=== PATIENT | female | born 1940 | race Caucasian/White ===

== ENCOUNTER 2017-01-09 16:01 | Inpatient (IN) | payer MEDICARE ==
[~2017-01-09] VITALS: Ht 152.4 cm; Wt 55.6 kg
[2017-01-09] MEDS ORDERED: PLEASE ENTER HEIGHT AND WEIGHT MC SCH (16:30)
[2017-01-09] MEDS ORDERED: PLEASE ENTER ALLERGIES MC SCH ×2 (16:30)
[2017-01-09] MEDS ORDERED: SODIUM CHLORIDE 0.9% 1,000ML IVBOLUS ONE (16:30)
[2017-01-09] MEDS ORDERED: CEFTRIAXONE PMX 1GM/50ML 50 ML IVPB ONE (16:30)
[2017-01-09] MEDS ORDERED: AZITHROMYCIN 500 MG in SODIUM CHLORIDE 0.9% 250 ML IV ONE (16:30)
[2017-01-09] MEDS ORDERED: CEFTRIAXONE PMX 1GM/50ML 50 ML ONE (16:36)
[2017-01-09] MEDS ORDERED: OMEP10CA4 PO (16:43)
[2017-01-09] MEDS ORDERED: OXYC10TA6 PO (16:43)
[2017-01-09] MEDS ORDERED: ALBU8.5H3 INH (16:43)
[2017-01-09] MEDS ORDERED: GABA300C10 PO (16:43)
[2017-01-09] MEDS ORDERED: [UNRECOGNIZED DRUG - OTHER] (16:43)
[2017-01-09] MEDS ORDERED: [UNRECOGNIZED DRUG - OTHER] (16:43)
[2017-01-09] MEDS ORDERED: ATOR80TA75 PO (16:43)
[2017-01-09] MEDS ORDERED: WARF1TAB7 PO (16:43)
[2017-01-09 17:06] LABS: ASPARTATE AMINO TRANSFERASE 45 U/L (15-37); BLOOD UREA NITROGEN 12 mg/dL (7-18)
[2017-01-09 17:11] LABS: IS PT STATUS REG ER OR PRE ER? YES
[2017-01-09] MEDS ORDERED: OMNIPAQUE 350 MG/ML, 100ML BOTTLE ONE (19:13)
[2017-01-09] MEDS ORDERED: ACETAMINOPHEN 325 MG TABLET ONE (20:29)
[2017-01-09] MEDS ORDERED: POTASSIUM CHLORIDE 20 MEQ TAB.ER.PRT PO ONE (20:30)
[2017-01-09] MEDS ORDERED: BISACODYL 10 MG SUPP PR PRN (20:30)
[2017-01-09] MEDS ORDERED: CEFTRIAXONE PMX 1GM/50ML 50 ML IV SCH (20:30)
[2017-01-09] MEDS ORDERED: AZITHROMYCIN 500 MG in SODIUM CHLORIDE 0.9% 250 ML IV SCH (20:30)
[2017-01-09] MEDS ORDERED: NICOTINE 7 MG/24 HR PATCH.TD24 TD SCH (20:30)
[2017-01-09] MEDS ORDERED: POLYETHYLENE GLYCOL 17 GM PACKET PO PRN (20:30)
[2017-01-09] MEDS ORDERED: GUAIFENESIN/DM 200-20MG, 10ML UDC PO PRN (20:30)
[2017-01-09] MEDS ORDERED: ONDANSETRON 2MG/ML, 2ML IVPush PRN (20:30)
[2017-01-09] MEDS: ACETAMINOPHEN 325 MG TABLET PO PRN (20:31)
[2017-01-09] MEDS: SODIUM CHLORIDE FLUSH 3ML SYRINGE IVF SCH (21:00)
[2017-01-09] MEDS ORDERED: ATORVASTATIN 80 MG TABLET PO SCH (21:00)
[2017-01-09] MEDS: OXYcodone IR 5MG TABLET PO PRN (22:00)
[2017-01-09 22:11] VITALS: BP 133/55
[2017-01-09] MEDS ORDERED: ALBUTEROL SULFATE 2.5 MG/3 ML NPPB PRN (23:00)
[2017-01-09 23:41] LABS: IS PT STATUS REG ER OR PRE ER? NO
[2017-01-10 01:30] VITALS: BP 148/67
[2017-01-10] MEDS: ACETAMINOPHEN 325 MG TABLET PO PRN (03:51)
[2017-01-10] MEDS: OXYcodone IR 5MG TABLET PO PRN (06:09)
[2017-01-10 06:26] LABS: ASPARTATE AMINO TRANSFERASE 59 U/L (15-37); BLOOD UREA NITROGEN 8 mg/dL (7-18)
[2017-01-10 06:27] LABS: IS PT STATUS REG ER OR PRE ER? NO
[2017-01-10 06:49] VITALS: BP 133/63
[2017-01-10] MEDS ORDERED: OXYcodone IR 5MG TABLET PO PRN (09:00)
[2017-01-10] MEDS ORDERED: WARFARIN 1 MG TABLET PO-COUM SCH (09:00)
[2017-01-10] MEDS: SODIUM CHLORIDE FLUSH 3ML SYRINGE IVF SCH (09:00)
[2017-01-10] MEDS ORDERED: TEMPLATE NON-FORMULARY MED. (Oxycodone Hcl** 10 MG) PO SCH (09:00)
[2017-01-10] MEDS ORDERED: SENNA/DOCUSATE TABLET PO SCH (09:00)
[2017-01-10] MEDS ORDERED: GABAPENTIN 300 MG CAPSULE PO SCH (09:00)
[2017-01-10] MEDS ORDERED: AZIT500T77 PO (11:30)
[2017-01-10] MEDS ORDERED: GUAI600T22 PO (11:30)
[2017-01-10] MEDS ORDERED: GUAIFENESIN ER 600 MG TABLET PO SCH (11:30)
[2017-01-10] MEDS ORDERED: PIPERACILLIN/TAZO 3.375 GM in SODIUM CHLORIDE 0.9% 50 ML IV SCH (11:30)
[2017-01-10] MEDS ORDERED: CEFD300C37 PO (11:30)
== END 2017-01-10 11:59 | disposition home or self-care (01) | DRG 193 ==
LOC: ED 18:18 → EDIP 19:56 → 3NE 20:55
DX: J15.9 Unspecified bacterial pneumonia (principal); J96.01 Acute respiratory failure with hypoxia; F11.20 Opioid dependence, uncomplicated; J47.0 Bronchiectasis with acute lower respiratory infection; D50.9 Iron deficiency anemia, unspecified; D53.9 Nutritional anemia, unspecified; E78.00 Pure hypercholesterolemia, unspecified; E78.5 Hyperlipidemia, unspecified; E87.5 Hyperkalemia; F17.210 Nicotine dependence, cigarettes, uncomplicated; G62.9 Polyneuropathy, unspecified; I69.320 Aphasia following cerebral infarction; M19.90 Unspecified osteoarthritis, unspecified site; Z96.642 Presence of left artificial hip joint; R91.1 Solitary pulmonary nodule; R01.1 Cardiac murmur, unspecified; R59.0 Localized enlarged lymph nodes
CPT/HCPCS: 36415; 71010; 71275; 80053; 82607; 82746; 83605; 84484; 85025; 85610; 85730; 87040; 93005; 96365; 96366; 96368; J0456; J0696; Q9967; J7030; J7050